=== PATIENT | male | born 1985 | race Caucasian/White ===

== ENCOUNTER 2020-12-11 20:09 | Emergency (ER) | payer BC ==
[2020-12-11 23:24] LABS: HEMOGLOBIN 16.2 gm/dl (14.0-17.5); RED BLOOD COUNT 5.06 M/UL (4.20-5.50); WHITE BLOOD COUNT 6.2 K/UL (4.5-11.0)
[2020-12-11 23:45] LABS: BUN/CREATININE RATIO 19 (0-10)
[2020-12-12] MEDS ORDERED: HYDROCODON-ACE1 EAC6 PO (00:57)
[2020-12-12] MEDS ORDERED: ZOFRAN ODT 4 MG4 MG GT (00:57)
[2020-12-12] MEDS ORDERED: FLOMAX 0.4 MG0.4 MG PO (00:57)
== END 2020-12-12 01:45 | disposition home or self-care (01) ==
LOC: ER1 20:09
PROVIDERS: Physician Assistant
DX: M54.16 Radiculopathy, lumbar region (principal); Z88.1 Allergy status to other antibiotic agents; Z79.899 Other long term (current) drug therapy
CPT/HCPCS: 72131; 80048; 81001; 85025; 87086; 96372; 99284; J1100; J1885; J2270; J2550

== ENCOUNTER 2021-02-02 21:26 | Emergency (ER) | payer BC ==
[~2021-02-02 21:26] MED LIST: FLOMAX 0.4 MG0.4 MG PO; HYDROCODON-ACE1 EAC6 PO; ZOFRAN ODT 4 MG4 MG GT
[2021-02-02 22:57] LABS: HEMOGLOBIN 16.2 gm/dl (14.0-17.5); RED BLOOD COUNT 5.07 M/UL (4.20-5.50); WHITE BLOOD COUNT 9.8 K/UL (4.5-11.0)
[2021-02-02 23:09] LABS: BUN/CREATININE RATIO 18 (0-10)
[2021-02-03] MEDS ORDERED: HYDROCODON-ACE1 EAC2 PO (00:17)
== END 2021-02-03 02:47 | disposition home or self-care (01) ==
LOC: ER1 21:26
PROVIDERS: Family Medicine
DX: T83.84XA Pain due to genitourinary prosthetic devices, implants and grafts, initial encounter (principal); R82.81 Pyuria; F17.200 Nicotine dependence, unspecified, uncomplicated; Z87.442 Personal history of urinary calculi; Z88.1 Allergy status to other antibiotic agents; Z88.4 Allergy status to anesthetic agent; Z88.8 Allergy status to other drugs, medicaments and biological substances; Y83.9 Surgical procedure, unspecified as the cause of abnormal reaction of the patient, or of later complication, without mention of misadventure at the time of the procedure
CPT/HCPCS: 74018; 80053; 81001; 83690; 85025; 96372; 99284; J1170; J1885; J2270; J2550